=== PATIENT | female | born 1985 | race Caucasian/White ===

== ENCOUNTER 2017-11-18 14:31 | Emergency (ER) | payer SELFPAY ==
[~2017-11-18] VITALS: Ht 162.6 cm; Wt 81.8 kg
[~2017-11-18 14:31] MED LIST: FLEXERIL 1010 MG/TAB PO; NORCO 325 MG-51 TAB PO; PHENERGAN 25 TA25 MG PO; PRENATAL VITAMI1 TA5 PO
[2017-11-18 14:33] VITALS: BP 152/85; PULSE 86; TEMP 99.6
[2017-11-18] MEDS ORDERED: AMOXICILLIN875 MG PO (14:51)
== END 2017-11-18 14:54 | disposition home or self-care (01) ==
LOC: COL.ER 14:31
DX: H66.92 Otitis media, unspecified, left ear (principal)

== ENCOUNTER 2019-01-05 17:44 | Emergency (ER) | payer OTHER ==
[~2019-01-05] VITALS: Ht 162.6 cm; Wt 81.8 kg
[~2019-01-05 17:44] MED LIST changes: +AMOXICILLIN875 MG PO
[2019-01-05 18:00] VITALS: BP 170/99; TEMP 98.6
[2019-01-05 18:28] LABS: BASO # 0.1 (0.0-0.2); BASO % 0.7 % (0.0-2.0); EOS # 0.2 (0.0-0.7); EOS % 1.7 % (0-4.0); GRAN # 6.1 (1.4-6.5); GRAN % 66.6 % (42.2-75.2); HEMATOCRIT 39.2 % (37.0-47.0); HEMOGLOBIN 12.8 g/dl (12.5-16.0); LYMPH # 2.3 (1.2-3.4); LYMPH % 24.6 % (20.0-51.0); MEAN CELL VOLUME 86 fl (80.0-100.0); MEAN CORPUSCULAR HEMOGLOBIN 28 pg (27.0-31.0); MEAN CORPUSCULAR HGB CONC 33 g/dl (33.0-37.0); MEAN PLATELET VOLUME 9.6 fl (7.4-10.4); MONO # 0.6 (0.1-0.6); MONO % 6.1 % (1.7-9.3); PLATELET COUNT 334 K/mm3 (130-400); RED BLOOD COUNT 4.58 M/mm3 (4.10-5.30); REDCELL DISTRIBUTION WIDTH-CV 12.7 % (11.5-14.5)
[2019-01-05 19:43] VITALS: PULSE 80
[2019-01-06] MEDS ORDERED: FLAGYL500 MG PO (05:33)
== END 2019-01-05 19:44 | disposition home or self-care (01) ==
LOC: COL.ER 17:44
PROVIDERS: Emergency Medicine
DX: N93.9 Abnormal uterine and vaginal bleeding, unspecified (principal); Z98.51 Tubal ligation status

== ENCOUNTER → 2019-01-24 | Outpatient (CLI) | payer OTHER ==
[~2019-01-24] MED LIST changes: +FLAGYL500 MG PO
== END ==
LOC: COL.RAD 14:50
DX: N93.9 Abnormal uterine and vaginal bleeding, unspecified (principal); R93.89 Abnormal findings on diagnostic imaging of other specified body structures